=== PATIENT | female | born 1960 | race Asian ===

== ENCOUNTER 2018-01-08 08:55 | Emergency (ER) | payer OTHER ==
[~2018-01-08] VITALS: Ht 160 cm; Wt 72.6 kg
[2018-01-08 09:08] VITALS: BP 155/92
--- NOTE | 2018-01-08 09:24 | Emergency Room Report ---
History of Present Illness General Chief Complaint: Eye Problems Source: Patient Present Illness HPI Patient is a 58-year-old female who presented after acute onset of right eye vision loss. This began yesterday. The patient reports having prior history of myopia. She had noticed him increased floating objects in the right eye. She reports having increased blurring of the vision initially subsequently complete loss of the lateral aspect of vision. The patient was having prior history of hypertension. She denies prior history of glaucoma. Allergies: Coded Allergies: No Known Allergies (Unverified , 01/08/18) Patient History Reviewed Nursing Documentation: PMH: Agreed; PSxH: Agreed Nursing Documentation-PM Past Medical History: No History, Except For Hx Hypertension: Yes Review of Systems All Other Systems: negative except mentioned in HPI Physical Exam Vital Signs Date Time Temp Pulse Resp B/P (MAP) Pulse Ox O2 Delivery O2 Flow Rate FiO2 01/08/18 08:57 98.2 111 18 155/92 91 Room Air 98.2 General Appearance: well appearing, no apparent distress, alert, GCS 15, non- toxic, obese Head: normocephalic, atraumatic Eyes: bilateral eye normal inspection, bilateral eye PERRL, bilateral eye abnormal EOM, bilateral eye abnormal pupil, bilateral eye other - right temoral vision loss, left normal per patient ENT: hearing grossly normal, normal voice Neck: full range of motion, supple Respiratory: lungs clear, normal breath sounds, no respiratory distress, speaking full sentences Cardiovascular #1: normal inspection, normal peripheral pulses, regular rate, rhythm Gastrointestinal: normal inspection Musculoskeletal: normal inspection, no calf tenderness Neurologic: normal inspection, alert, oriented x3, responsive, normal gait Psychiatric: mood/affect normal Skin: no rash Medical Decision Making Diagnostic Impression: Primary Impression: Vision loss of right eye ER Course Patient presented for right eye vision loss. The differential diagnosis included was not limited to central retinal artery occlusion, retinal hemorrhage , retinal detachment, glaucoma, among others.The patient noted have interocular pressure of 18 both eyes. Patient was noted to have unable to see eye chart with right eye. Patient was given tetracaine eyedrops as well as Tropicamide eye drop to right eye.Patient was able to visualize fingers. Ophthalmology was consulted. The patient was seen by Dr. Kurt Hanson who diagnosed patient with a vitreous hemorrhage. Bedside ultrasound showed no evidence of a retinal detachment. The patient was referred to a specialist for definitive management. Patient acknowledged understanding of the discharge instructions. Last Vital Signs Date Time Temp Pulse Resp B/P (MAP) Pulse Ox O2 Delivery O2 Flow Rate FiO2 01/08/18 09:08 98.2 111 18 155/92 91 Room Air 98.2 Status: unchanged Disposition: HOME, SELF-CARE Condition: Stable Nathaniel Garner MD Jan 08, 2018 09:24
[2018-01-08] MEDS ORDERED: Tetracaine 0.5% Opth 4ml Soln RIGHT EYE ONE (09:30)
[2018-01-08] MEDS ORDERED: Tropicamide 1% Opth 15ml Soln RIGHT EYE ONE (09:45)
[2018-01-08] MEDS ORDERED: Phenylephrine 10% Opth Soln 5ml BOTH EYES ONE (11:00)
[2018-01-08 12:05] VITALS: BP 143/76
[2018-01-08 13:56] VITALS: BP 128/76
[2018-01-08 13:57] VITALS: BP 128/76
--- NOTE | 2018-01-09 | Consultation ---
DATE OF CONSULTATION: 01/08/2018 CONSULTING PHYSICIAN: Morales Hanson M.D. REQUESTING PHYSICIAN: Nathaniel Garner M.D. REASON FOR REFERRAL: This consultation is at the request of Dr. Nathaniel Garner for evaluation of decreased visual acuity. HISTORY OF PRESENT ILLNESS: The patient is a 58-year-old female, who yesterday afternoon at approximately 4:30 awoke from a nap and noticed loss of vision in the right eye. There is no history of pain, trauma, discharge, or photophobia. She went to sleep in her usual state of health at her home and again woke up with loss of vision in the right eye. She says it persists with maybe slight improvement. ALLERGIES: None known. MEDICATIONS: Hypertensive medications. PAST SURGICAL HISTORY: None. PAST OCULAR HISTORY: Myopia, both eyes. FAMILY OCULAR HISTORY: None. REVIEW OF SYSTEMS: A 12-point review of systems was negative except for the above. PHYSICAL EXAMINATION: EYE: Upon exam, her visual acuity was checked in the emergency room prior to my seeing her and she was also evaluated. She feels her visual acuity in the left eye is without problems, but in the right eye, she is count fingers. The intra-ocular pressure by Andrew-Pen tonometry at approximately 1330 was OD 22 and OS 22. The pupils were dilated at approximately 8 mm bilaterally. The extraocular motility was intact bilaterally. The lids were within normal limits bilaterally as well as the conjunctiva and sclera. The cornea was clear bilaterally. The anterior chamber was deep and quiet bilaterally. The iris and lens were within normal limits bilaterally. Dilated fundus examination in the right eye revealed a diffuse vitreous haze with mild to trace hemorrhage. The left vitreous revealed few floaters. The macular OD was very difficult to view secondary to the vitreous haze, but grossly was within normal limits. OS was within normal limits. The nerve in the right eye revealed approximately 2.5 disc diameter area of hemorrhage juxtaposed to the nerve at approximately 1 o'clock. This was elevated. The nerve itself grossly was without edema or hemorrhage, although this is very difficult to tell secondary to the vitreous haze. The left nerve did have a myopic . The peripheral retina in both eyes appeared flat without any retinal tears or detachment. ASSESSMENT AND PLAN: Subretinal hemorrhage, right eye. Although her blood pressure was within normal limits in her eye, I referred her to a retina specialist to evaluate in the next 2 days. If this should get worse, she should be seen immediately again. I want to review this with the patient. She is aware and understands that she is to follow up immediately if anything worsens. She may have subretinal neovascularization, which needs to be further evaluated by a retina specialist. Morales Hanson M.D. DR: GALE JOB#: [id number] CC:
== END 2018-01-08 13:57 | disposition home or self-care (01) ==
LOC: EMR 09:15
DX: H54.61 Unqualified visual loss, right eye, normal vision left eye (principal); I10 Essential (primary) hypertension
CPT/HCPCS: 99283